=== PATIENT | female | born 1985 | race Caucasian/White ===

== ENCOUNTER → 2018-02-27 | Outpatient (CLI) | payer BC | LOC: M WUC 11:04 | DX: R60.0 Localized edema (principal); M77.32 Calcaneal spur, left foot; M25.572 Pain in left ankle and joints of left foot; W54.0XXD Bitten by dog, subsequent encounter; X58.XXXA Exposure to other specified factors, initial encounter; Y92.9 Unspecified place or not applicable | CPT/HCPCS: 73610 ==

== ENCOUNTER → 2022-08-08 | Outpatient (CLI) | payer BC ==
[2022-08-08 16:17] LABS: BLOOD UREA NITROGEN 6 MG/DL (9-23); CREATININE FOR GFR 0.79 MG/DL (0.55-1.30); GLOMERULAR FILTRATION RATE > 60.0 (>60)
[2022-08-08 16:18] LABS: RHEUMATOID FACTOR QUANT < 3.5 IU/ML (<14)
[2022-08-08 16:19] LABS: VITAMIN B12 LEVEL 346 PG/ML (211-911)
[2022-08-08 16:20] LABS: TOTAL 25(OH) VITAMIN D 22.1 NG/ML (20.0-100.0)
[2022-08-08 18:32] LABS: FOLATE 10.91 NG/ML (>5.4)
[2022-08-09 10:17] LABS: DRVV SCREEN 38.3 SEC
[2022-08-09 10:20] LABS: PTT LUPUS TYPE ANTICOAG SCREEN 1.1 (0-1.2)
== END ==
LOC: M PLALAB 11:06
PROVIDERS: ATTEND Psychiatry & Neurology Neurology
DX: H53.2 Diplopia (principal); R42 Dizziness and giddiness; E53.8 Deficiency of other specified B group vitamins; H53.9 Unspecified visual disturbance

== ENCOUNTER → 2023-08-19 | Outpatient (CLI) | payer BC | LOC: M RAD 14:05 | PROVIDERS: ATTEND Internal Medicine Cardiovascular Disease | DX: J20.9 Acute bronchitis, unspecified (principal); R05.1 Acute cough ==

== ENCOUNTER → 2024-07-02 | Outpatient (CLI) | payer BC | LOC: M WHC 07:18 | PROVIDERS: ATTEND Nurse Practitioner Family | DX: Z12.31 Encounter for screening mammogram for malignant neoplasm of breast (principal); N63.20 Unspecified lump in the left breast, unspecified quadrant ==

== ENCOUNTER → 2024-07-02 | Outpatient (REF) | payer BC ==
[2024-07-07 15:02] LABS: HPV APTIMA Not Detected (Not Detected)
== END ==
LOC: M SFHCWAGY 13:03
PROVIDERS: ATTEND Nurse Practitioner Family
DX: Z12.4 Encounter for screening for malignant neoplasm of cervix (principal)
CPT/HCPCS: 87624; G0123

== ENCOUNTER → 2024-07-29 | Outpatient (CLI) | payer BC | LOC: M WHC 08:20 | PROVIDERS: ATTEND Nurse Practitioner Family | DX: R92.8 Other abnormal and inconclusive findings on diagnostic imaging of breast (principal); R92.332 Mammographic heterogeneous density, left breast | CPT/HCPCS: 77065; G0279 ==